=== PATIENT | female | born 1970 | race Two or more races ===

== ENCOUNTER 2016-09-19 11:56 | Emergency (ER) | payer OTHER ==
[2016-09-19 12:23] LABS: URINE BILIRUBIN NEGATIVE (NEGATIVE); URINE BLOOD NEGATIVE (NEGATIVE); URINE GLUCOSE (UA) NEGATIVE (NEGATIVE); URINE LEUKOCYTE ESTERASE TRACE (NEGATIVE); URINE NITRITE NEGATIVE (NEGATIVE); URINE PROTEIN NEGATIVE (NEGATIVE); URINE UROBILINOGEN NORMAL (0-1 mg/dl)
[2016-09-19 12:24] LABS: URINE APPEARANCE CLEAR; URINE COLOR YELLOW
[2016-09-19 12:25] LABS: HCG,QUALITATIVE URINE NEGATIVE
[2016-09-19 12:31] LABS: URINE BACTERIA FEW; URINE EPITHELIAL CELLS FEW /hpf; URINE RBC 0-1 /hpf
== END 2016-09-19 14:34 | disposition home or self-care (01) ==
LOC: ED 11:56
DX: R10.2 Pelvic and perineal pain (principal)